=== PATIENT | male | born 1990 | race Caucasian/White ===

== ENCOUNTER 2024-06-15 08:45 | Emergency (ER) | payer OTHER ==
[~2024-06-15] VITALS: Ht 157.5 cm; Wt 63.6 kg
[~2024-06-15 08:45] MED LIST: ARIP15TA27 PO; CHOL200059 PO
[2024-06-15] MEDS: DiphenhydrAMINE HCL 50 MG/ML VIAL IM ONE (09:02)
[2024-06-15] MEDS: HALOPERIDOL LACTATE 5 MG/ML VIAL IM ONE (09:02)
[2024-06-15] MEDS: LORazepam 2 MG/ML VIAL IM ONE (09:02)
[2024-06-15 09:28] LABS: HEMATOCRIT 41.7 % (41-53); HEMOGLOBIN 14.1 g/dL (13.5-17.5); LYMPHOCYTES # (AUTO) 0.8 K/uL (1.0-4.8); LYMPHOCYTES % (AUTO) 16.2 % (22.0-44.0); MEAN CORPUSCULAR HEMOGLOBIN 29.8 pg (26.0-34.0); MEAN CORPUSCULAR HGB CONC 33.8 G/dL (31.0-37.0); MEAN CORPUSCULAR VOLUME 88 fL (80-100); MONOCYTES # (AUTO) 0.6 K/uL (0.1-1.0); MONOCYTES % (AUTO) 11.5 % (2.0-9.0); NEUTROPHILS # (AUTO) 3.5 K/uL (1.8-7.7); NEUTROPHILS % (AUTO) 70.3 % (40.0-70.0); PLATELET COUNT (AUTO) 255 K/uL (150-450); RED BLOOD CELL COUNT(AUTO) 4.72 MIL/uL (4.50-5.90); RED CELL DISTRIBUTION WIDTH 13.2 % (11.5-14.5)
[2024-06-15 09:35] LABS: COVID AG,FIA SOURCE NASAL SWAB
[2024-06-15 09:36] LABS: ANION GAP 6 mmol/L (8-16); CALCIUM, TOTAL 9.1 mg/dL (8.8-10.5); CARBON DIOXIDE 31 mmol/L (22-29); CHLORIDE 108 mmol/L (98-107); CREATININE 1.12 mg/dL (0.60-1.30); GLOMERULAR FILTR. RATE CALC > 60 mL/min (>60); GLUCOSE,RANDOM 93 mg/dL (70-110); POTASSIUM 3.7 mmol/L (3.5-5.1); SODIUM SERUM 145 mmol/L (136-145); UREA NITROGEN, BLOOD 16 mg/dL (7-18)
[2024-06-15 09:53] LABS: SARS-COV2 (COVID) ANTIGEN,FIA Negative (Negative)
[2024-06-15 09:53] LABS: ALCOHOL, BLOOD (SERUM) < 3 mg/dL (0-10)
[2024-06-15 12:59] VITALS: BP 118/59; PULSE 92; RESP 18; TEMP 98.3; O2SAT 98
== END 2024-06-15 13:06 | disposition home or self-care (01) ==
LOC: EMS 08:46
DX: F41.0 Panic disorder [episodic paroxysmal anxiety] (principal); F32.A Depression, unspecified; Z79.899 Other long term (current) drug therapy; Z20.822 Contact with and (suspected) exposure to COVID-19
CPT/HCPCS: 99285; 87426; 80048; 85025; 36415; 96372; G0480